=== PATIENT | female | born 1935 | race Caucasian/White ===

== ENCOUNTER 2017-02-01 00:11 | Observation (INO) ==
[2017-02-01] MEDS ORDERED: ONDANSETRON 4 MG/2 ML VIAL IV STA (00:46)
[2017-02-01] MEDS ORDERED: MORPHINE 2 MG/1 ML SYRINGE IV STA ×2 (00:46→02:06)
[2017-02-01] MEDS ORDERED: ONDANSETRON 4 MG/2 ML VIAL ONE (00:57)
[2017-02-01] MEDS ORDERED: MORPHINE 2 MG/1 ML SYRINGE ONE ×2 (00:57→01:56)
[2017-02-01 01:03] LABS: Basophils # 0.1 10*3/uL (0.0-0.2); Basophils % 0.4 % (0.0-0.8); Eosinophils % 0.2 % (0.00-10.9); Hematocrit 38.7 VOL% (35.7-47.0); Hemoglobin 13.5 GM/DL (12.0-16.0); Immature Granulocytes % 0.5 %; Immature Granulocytes Absolute 0.08 #; Lymphocytes # 1.6 10*3/uL (1.4-4.0); Lymphocytes % 10.5 % (21.3-54.2); Mean Corpuscular HGB Conc 34.9 GM/DL (32-36); Mean Corpuscular Hemoglobin 29 PG (27-34); Mean Corpuscular Volume 83.6 FL (87-102); Mean Platelet Volume 9.3 FL (9.6-12.0); Monocytes # 0.7 10*3/uL (0.11-0.8); Monocytes % 4.7 % (1.7-12.7); Neutrophils # 12.8 10*3/uL (1.4-7.4); Neutrophils % 83.7 % (38.7-73.9); Platelet Count 475 T/CUMM (130-400); Red Blood Count 4.63 MC/CUMM (3.8-5.5); Red Cell Distribution Width 14.2 % (9.3-17.3); White Blood Count 15.3 T/CUMM (4-12)
--- NOTE | 2017-02-01 01:13 | Emergency Department Note ---
Sydney Miranda Mantricia, am scribing for, and in the presence of, Riddhi Waterman DO 00:52. IGuevara Debra, DO, personally performed the services described in this documentation, ascribed by Susan Grimes in my presence, and it is both accurate and complete . Arrival - Arrival Chief Complaint: Chest Pain ED Nursing Triage Note: pt brought in via ems with c/o chest pain. pt received 324mg asa and nitro x2 with some relief. pt reports chest pain is now "4" from an "8". pt has hx heart murmur, dm, and breast cancer Mode of Arrival: Stretcher Limitations: No Limitations Source: Patient Time Seen by Provider: 02/01/17 00:23 - History of Present Illness HPI Narrative: Pt is an 81 y/o white female arriving to ED by EMS with c/o chest pain that onset today. Pt reports a PMHx of GERD so when experiencing the pain, she thought she was having a flare up. Because of this, pt took one of her antacids and did not have any relief. Pt had an echo performed a "few weeks" ago with J Carlos Quarles and was told that she has a heart murmur. Pt denies ever having a cath done before. She reports that the pain radiates to her back and left leg. Pt was given 324mg ASA and NTG x2 and had minimal relief. At time of exam, pt's heart rate is 102 with a blood pressure of 174/91. Pt has a PMHx of heart murmur , GERD, DM, and breast cancer. She reports that she receives yearly breast cancer treatments with Dr. Fields. No other complaints were reported to ED. Onset (ago): hour(s) Consistency: constant Severity: moderate Date of Last Menstrual Period: pm Allergies/Adverse Reactions: Allergies Allergy/AdvReac Type Severity Reaction Status Date / Time Penicillins Allergy RASH Verified 02/01/17 00:25 Review of System - Review of System 12 point system: reviewed and no additional remarkable complaints except as stated - Review of System Constitutional: Absent: chills, diaphoresis, fever Respiratory: Absent: cough Cardiovascular: Present: chest pain. Absent: palpitations Gastrointestinal: Absent: abdominal pain, nausea, vomiting, diarrhea Musculoskeletal: Absent: arm pain, back pain, leg pain, neck pain Medical,Surgical,& Family Hx - Medical History Cardio: History of: Cardiovascular Problems (heart murmur) Endocrine: History of: Diabetes Mellitus (NIDDM) - Social History Smoking Status: Never smoker Frequency of Alcohol Use: None Type of Drug Use: None Exam Vital Signs: Vital Signs Temperature 97.7 F 02/01/17 00:11 Pulse Rate 98 H 02/01/17 00:11 Respiratory Rate 20 02/01/17 00:11 Blood Pressure 172/93 02/01/17 00:11 O2 Sat by Pulse Oximetry 98 02/01/17 00:11 - General General appearance: alert, in no apparent distress - Head Head exam: Present: atraumatic, normocephalic - Eye Eye exam: Present: normal appearance, PERRL, EOMI - ENT ENT exam: Present: normal exam - Neck Neck exam: Present: normal inspection - Chest Chest inspection: Present: normal inspection - Respiratory Respiratory exam: Present: normal lung sounds bilaterally - Cardiovascular Cardiovascular exam: Present: normal rhythm, tachycardia, normal heart sounds - Abdominal Exam Abdominal exam: Present: soft. Absent: distention, tenderness, guarding, rebound - Extremities Exam Extremities exam: Present: normal capillary refill, other (non-pitting edema LE bilat). Absent: tenderness - Back Exam Back exam: Present: normal inspection - Neurological Exam Neurological exam: Present: alert, oriented X3, CN II-XII intact - Psychiatric Psychiatric exam: Present: normal affect, normal mood - Skin Skin exam: Present: warm, dry, intact, normal color Course Course Narrative: Spoke with hospitalist regarding patient's condition. His troponin and CK-MB are elevated. She will be admitted secondary to coronary event. Results - Labs CBC & BMP: 02/01/17 00:49 02/01/17 00:49 Lab Results: I have reviewed the patients labs Labs: Laboratory Tests 02/01/17 10 00:49 00:49 WBC 15.3 H MCV 83.6 L Plt Count 475 H MPV 9.3 L Neut % (Auto) 83.7 H Lymph % (Auto) 10.5 L Neut # (Auto) 12.8 H Sodium 132 L Chloride 94 L Anion Gap 19.7 H BUN 14 Creatinine 1.20 H Glucose 211 H Calculated Osmolality 270.5 L Calcium 10.5 H CK-MB (CK-2) 6.1 H Troponin I 1.340 H - EKG EKG results: interpreted by RUTHANND EKG shows: tachycardia, sinus rhythm - Diagnostic Findings Procedure: Chest x-ray: image reviewed by me (no acute process) Disposition Clinical Impression: Chest pain Case discussed with: patient, patient's family Disposition: Still a Patient Condition: Stable Time of Disposition: 04:00
[2017-02-01 01:15] LABS: PT Patient Result 10.4 SECS; Partial Thromboplastin Time 25.2 SECS (0-40)
[2017-02-01 01:24] LABS: Bilirubin,Total 0.5 MG/DL (0.2-1.0); Calcium 10.5 MG/DL (8.5-10.1); Osmolality,Calculated 270.5 MOS/KG (273-304); Potassium 3.7 MMOL/L (3.5-5.1); Total Protein 7.5 G/DL (6.4-8.3)
[2017-02-01 01:40] LABS: Troponin I Only 1.34 NG/ML (0.00-0.045)
[2017-02-01] MEDS ORDERED: NITROGLYCERIN 2% OINT 1 INCH/GM PACK TOP ONE (01:56)
[2017-02-01] MEDS ORDERED: NITROGLYCERIN 2% OINT 1 INCH/GM PACK TOP STA (02:06)
--- NOTE | 2017-02-01 02:54 | Order Completion Report ---
See report scanned to EMR
[2017-02-01] MEDS ORDERED: ENOXAPARIN 80 MG/0.8 ML SYRINGE SUBCUT STA (03:31)
[2017-02-01] MEDS ORDERED: ENOXAPARIN 80 MG/0.8 ML SYRINGE SUBCUT ONE (04:07)
[2017-02-01] MEDS ORDERED: GLUCAGON 1 MG VIAL IM PRN (04:21)
[2017-02-01] MEDS ORDERED: MORPHINE 2 MG/1 ML SYRINGE IV PRN (04:21)
[2017-02-01] MEDS ORDERED: DEXTROSE 50% 25 GM/50 ML SYRINGE IV PRN (04:21)
[2017-02-01] MEDS ORDERED: ONDANSETRON 4 MG/2 ML VIAL IV PRN (04:21)
--- NOTE | 2017-02-01 04:31 | Hospitalist History & Physical ---
Assessment and Plan (1) NSTEMI (non-ST elevated myocardial infarction) Status: Acute Assessment and plan: By definition patient has NSTEMI. We will trend troponin. Admit patient to monitored bed she has received Lovenox. Will continue aspirin daily and her home dose of metoprolol. Consult cardiology. Further heparin doses will defer to cardiology based on their evaluation and workup. Will order prophylactic dose of Lovenox for DVT prophylaxis starting from 02/02/2017. This may need to be stopped if cardiology recommend therapeutic dose of anticoagulation in the morning Current Visit: Yes (2) HTN (hypertension) Status: Acute Assessment and plan: Continue metoprolol 50 mg identify home meds Current Visit: Yes (3) Hypercalcemia Status: Acute Assessment and plan: Noted hypoglycemia will need to identify home medication but will give IV fluids as dehydration is suspected. Current Visit: Yes (4) Diabetes mellitus Status: Chronic Assessment and plan: Patient is on diet control for diabetes. Will check hemoglobin A1c and monitor blood sugar with the sliding scale short-acting insulin Current Visit: Yes (5) Leukocytosis Status: Acute Assessment and plan: No other evidence of infection or fever. Leukocytosis may be due to dehydration patient is being hydrated WBC count to be repeated after hydration. Further workup if continued to rise or febrile Current Visit: Yes (6) Hiatal hernia with GERD Status: Acute Assessment and plan: Antireflux measures and PPI Current Visit: Yes History of Present Illness Chief complaint: Chest pain History of present illness: Ms. Dewitt is a 81 year old female with history of hypertension and diabetes mellitus she is on antihypertensive medication but does not know the name of medication she is on diet control for diabetes mellitus. She has history of heart murmur but recent echo was done and according to her it was reported "ok" She was brought to the EMS with complaints of chest pain started at 10:30 PM initially she thought she has a heartburn due to GERD and took antacid but not relieved. She came to the ER by midnight and was still hurting she was given aspirin on route here and nitroglycerin sublingual. He has she received morphine and nitroglycerin ointment. Her pain has almost resolved now. The pain was reported to be midline and was radiating to back and felt like both side of chest hurting. It was associated that showed short of breath but no nausea vomiting but reported diaphoresis no fever or cough no urinary symptoms. In the ER she had EKG which appeared to show some ST changes in inferior leads "revealed troponin I 0.34 WBC 15.3 hemoglobin 13.5 hematocrit 38.7 platelet 475 sodium 132 potassium 3.7 creatinine 1.2 BUN 14 blood sugar 211 calcium 10.5. She also underwent evaluation with a CT chest which was reported to have large gastric containing hernia. she also received 80 mg of Lovenox in the ER. Allergies Allergy/AdvReac Type Severity Reaction Status Date / Time Penicillins Allergy RASH Verified 02/01/17 00:25 Medical,Surgical,& Family Hx - Medical History Cardio: History of: Cardiovascular Problems (heart murmur) Endocrine: History of: Diabetes Mellitus (NIDDM) - Social History Smoking Status: Never smoker Frequency of Alcohol Use: None Type of Drug Use: None 12 point system: reviewed and no additional remarkable complaints except as stated (Mentioned in HPI) Exam - Constitutional Vitals: Period Temp Pulse Resp BP Sys/Pike Pulse Ox Last 24 Hr 97.7 F-97.7 F 98-98 20-20 172-172/93-93 98 General appearance: no acute distress - Head Head exam: Present: normal inspection, normocephalic, atraumatic - Eye Eye exam: Present: EOMI. Absent: conjunctival injection, nystagmus Pupils: Present: MAYELA, normal accommodation - ENT ENT exam: Present: normal oropharynx, other (Dry oral mucosa) - Respiratory Respiratory exam: Present: clear to auscultation bilaterally. Absent: accessory muscle use, chest wall tenderness, rales, rhonchi - Cardiovascular Cardiovascular exam: Present: regular rate and rhythm. Absent: tachycardia - GI/Abdominal GI/Abdominal exam: Present: normal bowel sounds, soft. Absent: distended, tenderness - Extremities Exam Extremities exam: Present: normal inspection. Absent: edema - Neurological Exam Neurological exam: Present: alert, oriented X3. Absent: motor sensory deficit - Psychiatric Psychiatric exam: Present: normal affect, normal mood - Skin Skin exam: Present: normal color, warm Results - Labs CBC & BMP: 02/01/17 00:49 02/01/17 00:49 Lab Results: I have reviewed the past 24 hour labs
[2017-02-01] MEDS ORDERED: NITROGLYCERIN SL 0.4 MG TABLET SL PRN (04:41)
[2017-02-01] MEDS ORDERED: hydrALAZINE 25 MG TABLET PO PRN (04:47)
[2017-02-01] MEDS: SODIUM CHLORIDE 0.9% 1,000 ML IV SCH ×3 (06:46→17:15)
[2017-02-01 07:08] LABS: CKMB % 13.1 %
[2017-02-01 07:09] LABS: Troponin I Only 5.83 NG/ML (0.00-0.045)
[2017-02-01 07:15] LABS: Magnesium 1.7 MG/DL (1.8-2.4); Risk Ratio 3.12; Thyroid Stimulating Hormone 2.28 uIU/ml (0.358-3.74); VLDL CHOLESTEROL 20.4 MG/DL
[2017-02-01] MEDS: INSULIN LISPRO 100 UNIT/ML SUBCUT SCH ×4 (08:39→22:07)
[2017-02-01] MEDS: METOPROLOL SUCCINATE XL 50 MG TABLET PO SCH (08:40)
[2017-02-01] MEDS: ASPIRIN EC 81 MG TABLET PO SCH (08:40)
[2017-02-01] MEDS: PANTOPRAZOLE 40 MG TABLET PO SCH (08:40)
--- NOTE | 2017-02-01 08:40 | XRay Report ---
XR chest 1V portable Indication: Chest pain Comparison: None available Findings: The heart size appears slightly enlarged. The pulmonary vascularity is slightly increased with bilateral increased interstitial lung density. No other lung infiltrates, effusions, pneumothorax or other abnormality is demonstrated. Impression: Findings suggest mild cardiac decompensation. PROCEDURE INTERPRETED AT [facility] DEPARTMENT OF RADIOLOGY Final Report Signed by: Dr. Edouard Rodgers
[2017-02-01] MEDS ORDERED: MAGNESIUM SULF RIDER 2 GM in PREMIX 1 EACH IV ONE (09:04)
[2017-02-01] MEDS ORDERED: MAGNESIUM SULF RIDER 50 ML IV ONE (09:05)
--- NOTE | 2017-02-01 09:05 | Cardiology Consult Note ---
Assessment and Plan (1) NSTEMI (non-ST elevated myocardial infarction) Status: Acute Assessment and plan: This apparently started yesterday or at least last night. This is been progressing in terms of symptoms. His troponins are increasing. The patient's current catheterization discussed above which will carry out this morning. Current Visit: Yes (2) Chest pain Status: Acute Assessment and plan: This is secondary to her non-ST segment elevation microinfarction/cardiac ischemia. Current Visit: Yes (3) Dyslipidemia Status: Chronic Assessment and plan: This is chronic and somewhat difficult to treat secondary to statin intolerance. Current Visit: Yes (4) Statin intolerance Status: Chronic Current Visit: Yes (5) Breast cancer, right Status: Chronic Assessment and plan: This is followed by her oncologist. Current Visit: Yes (6) HTN (hypertension) Status: Chronic Assessment and plan: Chronic and treated. Her blood pressures are borderline to mildly elevated still. We will adjust her medications during his hospitalization as needed. Current Visit: Yes (7) Hypercalcemia Status: Chronic Assessment and plan: We will leave this evaluation up to her primary care physician in the hospital service. Current Visit: Yes (8) Diabetes mellitus Status: Chronic Assessment and plan: This will be followed by the hospitalist service. Current Visit: Yes (9) Leukocytosis Status: Acute Assessment and plan: Etiology is unclear. We will leave this evaluation up to the hospital service. Current Visit: Yes History of Present Illness - Data of Consult Patient: known to practice within the last 3 years Consult date: 02/01/17 Requesting Physician: Jesu Everett - Consult Narrative Reason for consult: Chest pain, non-ST segment elevation microinfarction History of present illness: Ms. Dewitt is a 81 year old female who is admitted with chest pain. According to her and her over the past month she has had some chest discomfort back pain that she felt was indigestion since we seem to resolve with antacids. The patient was admitted with severe back discomfort and chest discomfort. A more intense in the back. It seemed to radiate to her shoulder blades but no radiation into the arms. No shortness of breath nausea or diaphoresis. It persisted and she presented to the emergency room for evaluation. She was brought in by EMS. ER evaluation included chest x-ray that per radiology revealed mild cardiac decompensation. ECG reveals sinus rhythm with lateral T-wave abnormalities that was minimal and non-diagnostic. ECG this morning with sinus rhythm with ST -T abnormalities nonspecific but slightly progressive from admission ECG. Her troponins have increased from 1.34-5.83 with CPKs increasing from 68 217 and a positive and significant elevated MB fraction. Patient is continued to have some recurrent chest pain of anginal quality. Her lipids are elevated and she is on pravastatin but has a history of statin intolerance. Other medical issues according to her and her chart include that of dyslipidemia as well as hypertension diabetes. She has a history of statin intolerances are noted and Dr. Quarles's note indicates that patient's had atherosclerosis of the aorta. Because this patient's recurrent pain elevated troponins I think she should have cardiac catheterization possible percutaneous intervention. I have reviewed this procedure with the patient and her reviewing the case procedure had be carried out the risk. I discussed cardiac catheterization and percutaneous coronary intervention with the patient and available family. I reviewed with them the indications for the procedure and the basis of how the procedure would be carried out. I also reviewed with them the risk of the procedure which include but not necessarily limited to access site bleeding, bruising, pain, swelling or vascular injury that may require emergency vascular surgery, blood transfusion, or thrombin injection. Also discussed the possibility of stroke, myocardial infarction, arrhythmia which may require electrocardioversion, and the possibility of dye reaction that would require medical therapy. Also discussed the possibility of coronary artery injury, ruptured, closure or perforation that may require emergency bypass surgery. We also discussed the possibility of from a major complication. They voice understanding and agree to proceed. We will plan on doing this morning urgently. CC: Jean Tavares MD - Home Medications and Allergies Home Medications: Home Medications Medication Instructions Recorded Confirmed Type Aspirin [Ecotrin] 81 mg PO BEDTIME 02/01/17 02/01/17 History Metoprolol Succinate Xl [Toprol Xl] 50 mg PO DAILY 02/01/17 02/01/17 History Montelukast Tab [Singulair Tab] 10 mg PO BEDTIME 02/01/17 02/01/17 History Multivitamin (Centrum) [Centrum 1 tablet PO DAILY 02/01/17 02/01/17 History Tab] Pantoprazole Tab [Protonix Tab] 40 mg PO DAILY 02/01/17 02/01/17 History Allergies/Adverse Reactions: Allergies Allergy/AdvReac Type Severity Reaction Status Date / Time Penicillins Allergy RASH Verified 02/01/17 00:25 Review of systems: Constitutional: Denies anorexia, chills, fatigue, fever, frequent falls, night sweats, weight gain, weight loss Eyes: Denies visual changes or loss of vision Ears: Denies decreased hearing, vertigo Nose, mouth and throat: Denies dysphagia, epistaxis, headaches, neck pain, tongue swelling, Neck: Denies thyromegaly or masses. No stiffness. Cardiovascular: as per HPI Respiratory: Denies cough, dyspnea, hemoptysis, dyspnea on exertion, wheezing, snoring Gastrointestinal: Denies abdominal pain, constipation, dyspepsia, dysphagia, hematemesis, hematochezia, melena, nausea, vomiting Genitourinary: Denies dysuria, hematuria, nocturia Musculoskeletal: Denies arthralgias, joint swelling, muscle weakness, myalgias Neurological: denies abnormal gait, abnormal speech, confusion, convulsions, frequent falls, headaches, memory loss, syncope Psychiatric: Denies anxiety, confusion, depression Endocrine: Denies cold intolerance, fatigue, heat intolerance Hematologic/Lymphatic: Denies easy bleeding, easy bruising Dermatologic: Denies Rash, itching, shingles Medical,Surgical,& Family Hx - Medical History Cardio: History of: Cardiovascular Problems (heart murmur) Endocrine: History of: Diabetes Mellitus (NIDDM), Endocrine Problems (allergies - shots q 2 weeks) Reproductive: History of: Breast Cancer (1999- surgery and radiation) - Surgical History Cardiac Surgeries: Patient Denies: Cardiac Catheterization Neurologic Surgeries: Patient denies: Neurologic Surgery HEENT Surgeries: Surgical HX of: Eye Surgery (cataract surgery) Reproductive Surgeries: Surgical HX of;: Breast Surgery - Family History Family History: Denies;: Family Anesthesia Reaction, Family Cancer, Family Diabetes, Family Heart Disease, Family Hematology, Family Hypertension, Family Psychiatric Problems, Family Stroke, Additional Family History - Social History Smoking Status: Never smoker Frequency of Alcohol Use: None Type of Drug Use: None Marital Status: Lives With:: Spouse Functional capacity: independent ambulation Physical Examination Vital Signs Temp Pulse Resp BP Pulse Ox 97.7 F 98 H 20 172/93 98 02/01/17 00:11 02/01/17 00:11 02/01/17 00:11 02/01/17 00:11 02/01/17 00:11 Exam: General appearance: normal weight, no acute distress Head exam: normal inspection, atraumatic Eye exam: Pupils are equal and reactive. EOMI. There is no trauma. Ear exam: Anatomically normal. Normal auditory acuity to conversation. Oral exam: No significant oral lesions. Neck exam: normal inspection no JVD. No carotid bruit. Trachea is in midline. Respiratory exam: clear to auscultation bilaterally posteriorly and anteriorly with good air movement. No rales, rhonchi or wheezes. Cardiovascular exam: regular rate and rhythm, no murmur or gallop or rub. No precordial lift. No bruits over the major arteries. Chest wall/torso: Anatomically normal. No tenderness, deformity Peripheral Pulses: 2+ throughout. GI/Abdominal exam: normal bowel sounds, soft and nontender, no abdominal bruits or pulsatile masses. Musculoskeletal/Extremities exam: normal inspection without edema or cyanosis. No deformities or trauma. Neurological exam: alert, oriented X3. There is no gross neurologic deficits. Psychiatric exam: normal affect, normal mood. Cognitive function is grossly intact. Skin exam: normal color, warm. No rashes or other skin lesions. Result/EKG - Labs CBC & BMP: 02/01/17 00:49 02/01/17 00:49 Lab Results: I have reviewed the past 24 hour labs (Troponins and CPKs are increasing. WBC is elevated some.) Labs: Laboratory Results - last 24 hr 02/01/17 02/01/17 02/01/17 00:49 00:49 00:49 WBC 15.3 H RBC 4.63 Hgb 13.5 Hct 38.7 MCV 83.6 L MCH 29 MCHC 34.9 RDW 14.2 Plt Count 475 H MPV 9.3 L Neut % (Auto) 83.7 H Lymph % (Auto) 10.5 L [place] % (Auto) 4.7 Eos % (Auto) 0.2 Baso % (Auto) 0.4 Neut # (Auto) 12.8 H Lymph # (Auto) 1.6 [place] # (Auto) 0.7 Eos # (Auto) 0.0 Baso # (Auto) 0.1 Immature Gran % 0.5 Nucleated RBC % 0.0 Immature Gran # 0.08 Nucleated RBCs # 0.00 Immature Plt Fraction 0.0 INR 1.0 PT Patient/Control Mix 10.4 D-Dimer, Quantitative <= 0.5 Circ Anticoag PTT 25.2 Sodium 132 L Potassium 3.7 Chloride 94 L Carbon Dioxide 22 Anion Gap 19.7 H BUN 14 Creatinine 1.20 H GFR Calculation 45 BUN/Creatinine Ratio 11.00 Glucose 211 H POC Glucose Hemoglobin A1c Calculated Osmolality 270.5 L Calcium 10.5 H Magnesium Total Bilirubin 0.50 AST 18 ALT 18 Alkaline Phosphatase 113 Total Creatine Kinase 68 CK-MB (CK-2) 6.1 H CK and CKMB Interp 9.0 Troponin I 1.340 H B-Natriuretic Peptide Total Protein 7.5 Albumin 4.0 Globulin 3.5 Albumin/Globulin Ratio 1.1 Triglycerides Cholesterol LDL Cholesterol VLDL Cholesterol HDL Cholesterol Heart Disease Risk Ratio Free T4 TSH 3rd Generation 02/01/17 02/01/17 02/01/17 06:19 06:19 06:19 WBC RBC Hgb Hct MCV MCH MCHC RDW Plt Count MPV Neut % (Auto) Lymph % (Auto) [place] % (Auto) Eos % (Auto) Baso % (Auto) Neut # (Auto) Lymph # (Auto) [place] # (Auto) Eos # (Auto) Baso # (Auto) Immature Gran % Nucleated RBC % Immature Gran # Nucleated RBCs # Immature Plt Fraction INR PT Patient/Control Mix D-Dimer, Quantitative Circ Anticoag PTT Sodium Potassium Chloride Carbon Dioxide Anion Gap BUN Creatinine GFR Calculation BUN/Creatinine Ratio Glucose POC Glucose Hemoglobin A1c 6.8 H Calculated Osmolality Calcium Magnesium 1.7 L Total Bilirubin AST ALT Alkaline Phosphatase Total Creatine Kinase CK-MB (CK-2) CK and CKMB Interp Troponin I B-Natriuretic Peptide Total Protein Albumin Globulin Albumin/Globulin Ratio Triglycerides 102 Cholesterol 206 H LDL Cholesterol 126.0 VLDL Cholesterol 20.4 HDL Cholesterol 66 H Heart Disease Risk Ratio 3.12 Free T4 1.30 TSH 3rd Generation 2.280 02/01/17 02/01/17 02/01/17 06:19 06:19 07:34 WBC RBC Hgb Hct MCV MCH MCHC RDW Plt Count MPV Neut % (Auto) Lymph % (Auto) [place] % (Auto) Eos % (Auto) Baso % (Auto) Neut # (Auto) Lymph # (Auto) [place] # (Auto) Eos # (Auto) Baso # (Auto) Immature Gran % Nucleated RBC % Immature Gran # Nucleated RBCs # Immature Plt Fraction INR PT Patient/Control Mix D-Dimer, Quantitative Circ Anticoag PTT Sodium Potassium Chloride Carbon Dioxide Anion Gap BUN Creatinine GFR Calculation BUN/Creatinine Ratio Glucose POC Glucose 178 H Hemoglobin A1c Calculated Osmolality Calcium Magnesium Total Bilirubin AST ALT Alkaline Phosphatase Total Creatine Kinase 217 H D CK-MB (CK-2) 28.5 H D CK and CKMB Interp 13.1 Troponin I 5.830 H D B-Natriuretic Peptide 661 H Total Protein Albumin Globulin Albumin/Globulin Ratio Triglycerides Cholesterol LDL Cholesterol VLDL Cholesterol HDL Cholesterol Heart Disease Risk Ratio Free T4 TSH 3rd Generation - Impressions Impressions: ECG was sinus rhythm with ST-T abnormalities that are nondiagnostic but have shown a slight increase in abnormality since admission.
[2017-02-01 09:08] LABS: CKMB % 13.1 %
[2017-02-01 09:13] LABS: Troponin I Only 5.94 NG/ML (0.00-0.045)
[2017-02-01] MEDS ORDERED: DIAZEPAM 5 MG TABLET PO ONE (09:16)
[2017-02-01] MEDS ORDERED: POTASSIUM CHLORIDE RIDER 10 MEQ in PREMIX 1 EACH IV PRN (09:16)
[2017-02-01] MEDS ORDERED: diphenhydrAMINE CAP 25 MG CAPSULE PO ONE (09:16)
[2017-02-01] MEDS ORDERED: MAGNESIUM SULF RIDER 2 GM in PREMIX 1 EACH IV PRN (09:16)
--- NOTE | 2017-02-01 09:17 | History and Physical Update ---
Sedation H&P Update - History and Physical H&P was reviewed, the patient examined and there: are no changes in the patients condition since last H&P was completed. - Dictation Physical: refer to H&P completed by admitting physician - Physical Exam Mental Status: alert and oriented Heart: regular rate and rhythm Lung: clear to auscultation Abdomen: within normal limits Vitals: within normal limits History and Physical Changes: None - Sedation Plan for Sedation: moderate Patient Consent: Procedure disscussed with patient and patinet has consented., Risks and benefits were discussed with patient,including infection,, bleeding, injury to surrounding structures, seizure, temporary nerve, Patient understands and accepts potential risks/benefits and agrees to, proceed. ASA Class: III Airway Assessment: Class III: Soft palate, base of uvula visible
--- NOTE | 2017-02-01 09:25 | CT Report ---
CT chest w con Indication: Chest pain Comparison: None available Technique: Axial CT imaging of the chest was done at 3 mm intervals with intravenous contrast. Contrast dose was Omnipaque 350. Findings: There are small amounts of airspace density in the dependent lungs and adjacent to the final hernia. Remaining lungs show no evidence of infiltrates or airspace disease. No nodule or mass is identified. No effusion or pneumothorax is seen. There is large hiatal hernia present. Otherwise the heart, mediastinum and great vessels appear within normal limits. No other abnormality is identified. Impression: Large hiatal hernia. Small amounts of airspace density in both lower lungs the dependent lungs and adjacent to the hernia sac, likely atelectasis. This CT exam was performed using one or more the following dose reduction techniques: Automated exposure control, adjustment of the MA and/or KV according to patient size, or use of iterative reconstruction technique. PROCEDURE INTERPRETED AT [facility] DEPARTMENT OF RADIOLOGY Final Report Signed by: Dr. Edouard Rodgers
[2017-02-01] MEDS ORDERED: LIDOCAINE 1% 20 ML VIAL ONE (09:55)
[2017-02-01] MEDS ORDERED: fentaNYL 100 MCG/2 ML VIAL ONE (09:56)
[2017-02-01] MEDS ORDERED: MIDAZOLAM 2 MG/2 ML VIAL ONE (09:56)
[2017-02-01] MEDS ORDERED: TIROFIBAN 5,000 MCG/100 ML PREMIX IV ONE (10:20)
[2017-02-01] MEDS ORDERED: TIROFIBAN 5,000 MCG/100 ML PREMIX IV SCH (10:28)
[2017-02-01] MEDS ORDERED: HYDROmorphone 2 MG/1 ML VIAL ONE (10:34)
[2017-02-01] MEDS ORDERED: TICAGRELOR 90 MG TABLET ONE (10:53)
--- NOTE | 2017-02-01 11:07 | Operative Note ---
Date of procedure: 02/01/17 Procedure Preformed: Left heart catheterization with stenting of the proximal and mid LAD. Surgeon / Physician: Aron Boyd Brake Drum Molder: Bethany Norton Post-op diagnosis: same Findings: High-grade proximal mid LAD stenosis with successful PCI. Specimens: none sent Estimated blood loss: minimal Condition: stable Anesthesia: local, conscious sedation Disposition: floor
[2017-02-01] MEDS ORDERED: FUROSEMIDE 20 MG/2 ML VIAL IV ONE (11:26)
[2017-02-01] MEDS: ACETAMINOPHEN 325 MG TABLET PO PRN ×3 (12:59→21:21)
--- NOTE | 2017-02-01 13:50 | XRay Report ---
XR chest 1V portable Indication: Shortness of breath Comparison: One February 2017 at 1249 Findings: The heart and mediastinum are stable in size and configuration. The pulmonary vascularity is slightly increased with bilateral increased interstitial lung density. No other lung infiltrates, effusions, pneumothorax or other abnormality is demonstrated. Impression: Findings suggest mild cardiac decompensation. PROCEDURE INTERPRETED AT [facility] (FORMERLY [facility]) DEPARTMENT OF RADIOLOGY Final Report Signed by: Dr. Edouard Rodgers
--- NOTE | 2017-02-01 15:57 | Event Note ---
81-year-old white female with history of hypertension and diabetes was admitted with chest pain. She ruled in for non-ST elevation [place], and cardiology performed left heart catheterization with successful PCI and stenting to proximal and mid LAD. She states that her chest pain has resolved. She is on aspirin and Brilinta as well as Aggrastat infusion. Her hemoglobin A1c was 6.8 , total cholesterol 206 with LDL 126. Continue to monitor on telemetry.
[2017-02-01 17:29] LABS: CKMB % 13.5 %
[2017-02-01 17:30] LABS: Apearance,Urine CLEAR (Clear); Bilirubin,Urine Negative (Negative); Blood, Urine Negative (Negative); Glucose,Urine (UA) Negative (Negative); Ketones,Urine Negative (Negative); Mucus,Urine Occasional /LPF (Occasional); Nitrite,Urine Negative (Negative); Protein,Urine Negative; RBC,Urine 4 /HPF (0-4); Squamous Epithelial Cell,Urine Occasional /HPF (0-10); Urine Color Yellow (Yellow); Urine Specific Gravity > 1.060 (1.001-1.035); Urine Urobilinogen < 2.0 EU/DL (0.2-1.0); WBC,Urine 1 /HPF (0-6)
[2017-02-01 17:32] LABS: Troponin I Only 5.93 NG/ML (0.00-0.045)
[2017-02-01] MEDS: TICAGRELOR 90 MG TABLET PO SCH (21:21)
[2017-02-02] MEDS: SODIUM CHLORIDE 0.9% 1,000 ML IV SCH ×2 (03:38→12:32)
--- NOTE | 2017-02-02 05:20 | Order Completion Report ---
See report scanned to EMR
--- NOTE | 2017-02-02 05:21 | Order Completion Report ---
See report scanned to EMR
[2017-02-02 05:54] LABS: Basophils % 0.3 % (0.0-0.8); Eosinophils # 0.1 10*3/uL (0.0-0.87); Eosinophils % 0.4 % (0.00-10.9); Hematocrit 28.1 VOL% (35.7-47.0); Immature Granulocytes % 0.4 %; Immature Granulocytes Absolute 0.05 #; Lymphocytes # 1.8 10*3/uL (1.4-4.0); Lymphocytes % 13.6 % (21.3-54.2); Mean Corpuscular HGB Conc 34.2 GM/DL (32-36); Mean Corpuscular Hemoglobin 29 PG (27-34); Mean Corpuscular Volume 85.7 FL (87-102); Mean Platelet Volume 9.6 FL (9.6-12.0); Monocytes # 1.1 10*3/uL (0.11-0.8); Monocytes % 8.1 % (1.7-12.7); Neutrophils # 10.4 10*3/uL (1.4-7.4); Neutrophils % 77.2 % (38.7-73.9); Red Cell Distribution Width 14.6 % (9.3-17.3); White Blood Count 13.4 T/CUMM (4-12)
[2017-02-02 06:15] LABS: Hemoglobin 9.6 GM/DL (12.0-16.0); Platelet Count 300 T/CUMM (130-400); Red Blood Count 3.28 MC/CUMM (3.8-5.5)
[2017-02-02 06:22] LABS: Albumin 2.1 G/DL (3.4-5.0); Calcium 6.4 MG/DL (8.5-10.1); Osmolality,Calculated 270.8 MOS/KG (273-304); Potassium 2.9 MMOL/L (3.5-5.1)
[2017-02-02 06:30] LABS: CKMB % 10.7 %; Calcium 7.1 MG/DL (8.5-10.1); Osmolality,Calculated 266.2 MOS/KG (273-304); Potassium 3.2 MMOL/L (3.5-5.1)
[2017-02-02 06:33] LABS: Troponin I Only 4.14 NG/ML (0.00-0.045)
--- NOTE | 2017-02-02 06:55 | Order Completion Report ---
See report scanned to EMR
[2017-02-02] MEDS: ASPIRIN EC 81 MG TABLET PO SCH (08:07)
[2017-02-02] MEDS: INSULIN LISPRO 100 UNIT/ML SUBCUT SCH ×2 (08:07→11:32)
[2017-02-02] MEDS: TICAGRELOR 90 MG TABLET PO SCH (08:08)
[2017-02-02] MEDS: PANTOPRAZOLE 40 MG TABLET PO SCH (08:11)
[2017-02-02] MEDS: METOPROLOL SUCCINATE XL 50 MG TABLET PO SCH (08:12)
[2017-02-02] MEDS ORDERED: ENOXAPARIN 40 MG/0.4 ML SYRINGE SUBCUT SCH (09:00)
[2017-02-02] MEDS ORDERED: LOSARTAN 25 MG TABLET PO SCH (09:00)
--- NOTE | 2017-02-02 10:47 | Cardiology Progress Note ---
Assessment and Plan (1) NSTEMI (non-ST elevated myocardial infarction) Status: Acute Assessment and plan: SEE PLAN OF CARE LISTED BELOW. Current Visit: Yes (2) Anemia Status: Acute Assessment and plan: SEE PLAN OF CARE LISTED BELOW. Current Visit: Yes (3) Hypokalemia Status: Acute Assessment and plan: SEE PLAN OF CARE LISTED BELOW. Current Visit: Yes (4) Leukocytosis Status: Acute Assessment and plan: SEE PLAN OF CARE LISTED BELOW. Current Visit: Yes (5) Breast cancer, right Status: Chronic Assessment and plan: SEE PLAN OF CARE LISTED BELOW. Current Visit: No (6) Diabetes mellitus Status: Chronic Assessment and plan: SEE PLAN OF CARE LISTED BELOW. Current Visit: Yes (7) Dyslipidemia Status: Chronic Assessment and plan: SEE PLAN OF CARE LISTED BELOW. Current Visit: Yes (8) HTN (hypertension) Status: Chronic Assessment and plan: SEE PLAN OF CARE LISTED BELOW. Current Visit: Yes (9) Statin intolerance Status: Chronic Assessment and plan: SEE PLAN OF CARE LISTED BELOW. Current Visit: Yes Cardiology - PN: Subj Interval history: NUT FEEDER: Dr. Quarles SUMMARY Ms. Dewitt is a 81 year old female with a past medical history of dyslipidemia ( history of statin intolerance), hypertension, breast cancer and diabetes who was admitted with non-ST elevation [place]. Subsequently, patient underwent heart catheterization per February 01, 2017. She was noted to have high-grade proximal mid LAD stenosis with successful PCI. FEBRUARY 02, 2017 Patient was seen and examined on the telemetry unit. She has done well post heart catheterization. Right groin is soft without bleeding, hematoma or bruit. Distal pulses 2+. Patient has ambulated around the room without difficulty. Right groin has remained stable post ambulation. She has been without recurrent chest pain, heaviness or tightness. Hemodynamically stable. I have discussed the importance of absolute compliance with dual antiplatelet therapy. Her and her both verbalized understanding. She will be discharged home on both Brilinta and aspirin. I have reviewed her labs. Troponin trending down. Her H&H has significantly dropped from previous withdrawal. It is possible that these labs could be dilated as she was receiving IV fluids at the time of her lab draw. I have discussed with the nurse and we will recheck both CBC and BMP. I have also discussed care with MIKE Kirby for hospital medicine. If her H&H and electrolytes are better with repeat lab draw patient will be eligible for discharge from a cardiac standpoint. Patient underwent echocardiogram this morning. These results are pending. The study will be reviewed per Dr. Bailey. REVIEW OF SYSTEMS: Cardiovascular: Denies chest pain, heaviness or tightness. Denies heart racing/ palpitations. GI: Denies nausea, vomiting or diarrhea. Denies constipation. Respiratory: Denies shortness of breath, orthopnea and dyspnea on exertion. IMPRESSION AND PLAN: 1. NON-ST ELEVATION [place] - Now status post PCI to mid LAD. Troponin is trending down. Patient without recurrent chest pain, heaviness or tightness. Continue dual antiplatelet therapy, losartan, beta-blockade, nitrates and lipid- lowering agent. Patient has history of statin intolerance for this reason she will not be discharged home on statin. She will be discharged home on Zetia. Repeat lipid panel in 4-6 weeks. Patient underwent echocardiogram this morning. These results are pending. The study will be reviewed per Dr. Bailey. Patient may be eligible for discharge home from a cardiac standpoint if repeat H &H and BMP are stable. 2. DYSLIPIDEMIA, STATIN INTOLERANT - Zetia initiated today. LDL 126. Repeat lipid panel in 4-6 weeks. 3. HYPERTENSION - Well controlled with current medication regimen. Continue ARB and beta blockade. 4. HISTORY OF BREAST CANCER - Stable, now in remission. 5. DIABETES - Management per attending. 6. LEUKOCYTOSIS WITH LEFT SHIFT - Afebrile. Defer workup/management to attending. This was present prior to heart catheterization. 7. ANEMIA - CBC this morning revealed H&H of 9.6 and 28.1. This is significantly lower than H&H yesterday. It is possible that these labs could be dilated as she was receiving IV fluids at the time of her lab draw. I have discussed with the nurse and we will recheck CBC. 8. HYPOKALEMIA - Potassium 3.2 this morning. It is possible that these labs could be dilated as she was receiving IV fluids at the time of her lab draw. I have discussed with the nurse and we will recheck BMP. DISCHARGE MEDICATIONS SHOULD INCLUDE: Brilinta 90 mg p.o. twice daily -patient will need 30 day free car Aspirin 81 mg daily Losartan 12.5 mg daily Metoprolol 50 mg daily Nitroglycerin sublingual tablet 0.4 mg as needed chest pain Zetia 10 mg daily Exam (Progress Note) - Constitutional Vitals: Period Temp Pulse Resp BP Sys/Pike Pulse Ox Last 24 Hr 96.8 F-98.9 F 78-97 18-20 98-135/52-78 89-100 Exam: General: Appears well with no apparent distress. Pleasant and cooperative. Appears comfortable. HEENT: PERRL, normocephalic, atraumatic. Mucous membranes moist. No jaundice noted. Conjunctiva moist and clear, sclerae anicteric Neck: No JVD/HJR, no thyromegaly or lymphadenopathy noted. No carotid bruit appreciated Cardiac: Regular rate and rhythm. No murmur rub or gallop. Lungs: Clear to auscultation without accessory muscle use to assist the respiratory pattern. Not requiring oxygen. Abdomen: Soft, bowel sounds normoactive. Nontender and nondistended. No abdominal bruit or thrill noted. No masses noted. Extremities: No clubbing, cyanosis noted. No edema noted. Upper extremity pulses 2+. Lower extremity pulses 2+. Capillary refill less than 3 seconds. Right groin soft without bleeding, hematoma or bruit. Distal pulses 2+. Skin: No unusual lesions or rashes. No skin breakdown appreciated. Neuro: Awake, alert and oriented 3. Moves all extremities well without hemiparesis or paralysis. No essential tremor is appreciated. Result/EKG - Labs CBC & BMP: 02/02/17 04:46 02/02/17 04:46 Lab Results: I have reviewed the past 24 hour labs Labs: Laboratory Results - last 24 hr 02/01/17 02/01/17 02/01/17 11:33 16:06 16:44 WBC RBC Hgb Hct MCV MCH MCHC RDW Plt Count MPV Neut % (Auto) Lymph % (Auto) [place] % (Auto) Eos % (Auto) Baso % (Auto) Neut # (Auto) Lymph # (Auto) [place] # (Auto) Eos # (Auto) Baso # (Auto) Immature Gran % Nucleated RBC % Immature Gran # Nucleated RBCs # Immature Plt Fraction Sodium Potassium Chloride Carbon Dioxide Anion Gap BUN Creatinine GFR Calculation BUN/Creatinine Ratio Glucose POC Glucose 181 H 143 H Calculated Osmolality Calcium Total Bilirubin AST ALT Alkaline Phosphatase Total Creatine Kinase 147 D CK-MB (CK-2) 19.9 H D CK and CKMB Interp 13.5 Troponin I 5.930 H Total Protein Albumin Globulin Albumin/Globulin Ratio Urine Color Urine Appearance Urine pH Ur Specific [place] Urine Protein Urine Glucose (UA) Urine Ketones Urine Blood Urine Nitrate Urine Bilirubin Urine Urobilinogen Urine Leukocytes Urine RBC Urine WBC Ur Squamous Epith Cells Urine Mucus Ur Culture Indicated? 02/01/17 02/01/17 02/02/17 17:17 20:00 04:46 WBC 13.4 H RBC 3.28 L D Hgb 9.6 L D Hct 28.1 L MCV 85.7 L MCH 29 MCHC 34.2 RDW 14.6 Plt Count 300 D MPV 9.6 Neut % (Auto) 77.2 H Lymph % (Auto) 13.6 L [place] % (Auto) 8.1 Eos % (Auto) 0.4 Baso % (Auto) 0.3 Neut # (Auto) 10.4 H Lymph # (Auto) 1.8 [place] # (Auto) 1.1 H Eos # (Auto) 0.1 Baso # (Auto) 0.0 Immature Gran % 0.4 Nucleated RBC % 0.0 Immature Gran # 0.05 Nucleated RBCs # 0.00 Immature Plt Fraction 0.0 Sodium Potassium Chloride Carbon Dioxide Anion Gap BUN Creatinine GFR Calculation BUN/Creatinine Ratio Glucose POC Glucose 157 H Calculated Osmolality Calcium Total Bilirubin AST ALT Alkaline Phosphatase Total Creatine Kinase CK-MB (CK-2) CK and CKMB Interp Troponin I Total Protein Albumin Globulin Albumin/Globulin Ratio Urine Color Yellow Urine Appearance Clear Urine pH 5.0 Ur Specific [place] > 1.060 H Urine Protein Negative Urine Glucose (UA) Negative Urine Ketones Negative Urine Blood Negative Urine Nitrate Negative Urine Bilirubin Negative Urine Urobilinogen < 2.0 H Urine Leukocytes Negative Urine RBC 4 Urine WBC 1 Ur Squamous Epith Cells Occasional Urine Mucus Occasional Ur Culture Indicated? Not indicated 02/02/17 02/02/17 02/02/17 04:46 04:46 07:38 WBC RBC Hgb Hct MCV MCH MCHC RDW Plt Count MPV Neut % (Auto) Lymph % (Auto) [place] % (Auto) Eos % (Auto) Baso % (Auto) Neut # (Auto) Lymph # (Auto) [place] # (Auto) Eos # (Auto) Baso # (Auto) Immature Gran % Nucleated RBC % Immature Gran # Nucleated RBCs # Immature Plt Fraction Sodium 137 134 L Potassium 2.9 L 3.2 L Chloride 107 102 Carbon Dioxide 19 L 20 L Anion Gap 13.9 15.2 H BUN 9 9 Creatinine 0.70 0.90 GFR Calculation 86 64 BUN/Creatinine Ratio 12.00 10.00 Glucose 87 94 POC Glucose 88 Calculated Osmolality 270.8 L 266.2 L Calcium 6.4 L D 7.1 L Total Bilirubin 1.00 AST 29 ALT 11 L Alkaline Phosphatase 64 Total Creatine Kinase 133 CK-MB (CK-2) 14.2 H D CK and CKMB Interp 10.7 Troponin I 4.140 H D Total Protein 4.0 L Albumin 2.1 L Globulin 1.9 L Albumin/Globulin Ratio 1.1 Urine Color Urine Appearance Urine pH Ur Specific [place] Urine Protein Urine Glucose (UA) Urine Ketones Urine Blood Urine Nitrate Urine Bilirubin Urine Urobilinogen Urine Leukocytes Urine RBC Urine WBC Ur Squamous Epith Cells Urine Mucus Ur Culture Indicated? Quality Measures - VTE Contraindication to Pharmacological VTE Prophylaxis: High Risk of Bleeding Specialty Discharge - Follow Up or Referrals Follow up with: Saleem Quarles MD [Physician] - 2 Weeks (EKG, BMP and CBC.)
[2017-02-02 11:36] LABS: Basophils # 0.1 10*3/uL (0.0-0.2); Basophils % 0.3 % (0.0-0.8); Eosinophils % 0.2 % (0.00-10.9); Hematocrit 34.2 VOL% (35.7-47.0); Immature Granulocytes % 0.5 %; Immature Granulocytes Absolute 0.09 #; Lymphocytes # 1.9 10*3/uL (1.4-4.0); Lymphocytes % 10.5 % (21.3-54.2); Mean Corpuscular HGB Conc 34.5 GM/DL (32-36); Mean Corpuscular Hemoglobin 29 PG (27-34); Mean Corpuscular Volume 84.4 FL (87-102); Mean Platelet Volume 9.6 FL (9.6-12.0); Monocytes # 1.4 10*3/uL (0.11-0.8); Monocytes % 7.8 % (1.7-12.7); Neutrophils # 14.7 10*3/uL (1.4-7.4); Neutrophils % 80.7 % (38.7-73.9); Red Cell Distribution Width 14.5 % (9.3-17.3)
[2017-02-02 11:40] LABS: Red Blood Count 4.05 MC/CUMM (3.8-5.5); White Blood Count 18.2 T/CUMM (4-12)
[2017-02-02 11:41] LABS: Hemoglobin 11.8 GM/DL (12.0-16.0); Platelet Count 362 T/CUMM (130-400)
[2017-02-02 11:54] VITALS: BP 131/74
[2017-02-02 13:39] LABS: Calcium 8.6 MG/DL (8.5-10.1); Magnesium 1.9 MG/DL (1.8-2.4); Osmolality,Calculated 256.1 MOS/KG (273-304); Potassium 3.9 MMOL/L (3.5-5.1)
--- NOTE | 2017-02-02 13:57 | Discharge Summary ---
Hospital Course - Hospital Course Hospital Course: 81-year-old white female with history of diabetes and hypertension admitted by the hospitalist service on 02/01/2017 with NSTEMI. Cardiology was consulted and patient was taken to the [facility] on 02/01/2017 where performed a left heart catheterization with stenting of the proximal and mid LAD. Patient did develop a small hematoma but this has resolved. Her H&H dropped somewhat but has recovered at 11.8/34.2 today. She does have an elevated white count of 18 with no signs of infection. Will go ahead and discharge patient home on current medications per cardiology with a prescription for Levaquin for 5 days to cover any postop infection. Complete discharge instructions were given to the patient. She will need to follow-up with Dr. Quarles in his office in 1- 2 weeks. Care coordination, chart review, and completed discharge paperwork took approximately 42 minutes. - Time spent with patient Time with patient DS: Greater than 30 minutes Diagnosis - Discharge Diagnosis (1) Chest pain Status: Resolved (2) NSTEMI (non-ST elevated myocardial infarction) Status: Acute (3) HTN (hypertension) Status: Chronic (4) Diabetes mellitus Status: Chronic Specialty Discharge - Follow Up or Referrals Follow up with: Saleem Quarles MD [Physician] - 02/19/17 3:30 pm (EKG, BMP and CBC. Arrive at 3:00 pm for lab work ) Discharge Plan - Discharge Data Disposition: Disch To Home/Self Care Condition at Discharge: Stable Discharge Diet: diabetic diet, heart healthy Activity: resume usual activities as tolerated Hygiene: may shower Contact your physician if you experience:: fever over 101, Redness or swelling, Shortness of breath - Discharge Medications New hydrALAZINE TAB [Apresoline Tab] 25 mg PO TID PRN #90 tablet PRN Reason: Blood Pressure-Increased Losartan [Cozaar] 12.5 mg PO DAILY #30 tablet Ticagrelor [Brilinta] 90 mg PO BID #60 tablet Ezetimibe [Zetia] 10 mg PO BEDTIME #30 tablet Levofloxacin Tab [Levaquin Tab] 500 mg PO DAILY #7 tablet Continue Multivitamin (Centrum) [Centrum Tab] 1 tablet PO DAILY Montelukast Tab [Singulair Tab] 10 mg PO BEDTIME Metoprolol Succinate Xl [Toprol Xl] 50 mg PO DAILY Aspirin [Ecotrin] 81 mg PO BEDTIME Eszopiclone [Lunesta] 1 mg PO BEDTIME PRN PRN Reason: Sleep Fluticasone Propionate [Fluticasone 50 mcg Nasal [place]] 50 mcg BOTH NARES BID Desloratadine [Clarinex] 5 mg PO DAILY Celecoxib [Celebrex] 200 mg PO DAILY PRN PRN Reason: Pain Pantoprazole Tab [Protonix Tab] 40 mg PO DAILY Cyanocobalamin Tab [Vitamin B12 Tab] 6,000 mg PO DAILY Azelastine Nasal 137 Mcg/[place] [Astelin Nasal [place]] 1 spray BOTH NARES DAILY Discontinued Triamterene/Hydrochlorothiazid [Triamterene-Hctz 37.5-25 mg Cp] 37.5 mg PO DAILY PRN PRN Reason: BP - Follow Up or Referral Follow Up: Saleem Quarles MD [Physician] - 02/19/17 3:30 pm (EKG, BMP and CBC. Arrive at 3:00 pm for lab work ) - Forms/Instructions Instructions: Myocardial Infarction (GEN), Left Heart Catheterization (DC), Heart Healthy Diet (GEN), Coronary Intravascular Stent Placement, Yard Jockey (GEN) Exam - Constitutional Vitals: Period Temp Pulse Resp BP Sys/Pike Pulse Ox Last 24 Hr 98.1 F-98.9 F 78-97 18-20 98-134/58-78 90-100 Exam: 81-year-old white female, no acute distress, alert and oriented Chest clear CV regular rate and rhythm Abdomen soft and nontender Extremities no edema Discharge Results Procedures and tests throughout hospitalization: Pending Orders 02/03/17 04:00 BMP w/ Mg [Basic Metabolic Panel w/Mg] IN AM CBC [Comp Blood Count Auto Diff] IN AM Labs on day of discharge: Labs from last 24 hours 02/02/17 02/02/17 02/02/17 12:52 11:25 10:44 WBC 18.2 H D RBC 4.05 D Hgb 11.8 L D Hct 34.2 L MCV 84.4 L MCH 29 MCHC 34.5 RDW 14.5 Plt Count 362 D MPV 9.6 Neut % (Auto) 80.7 H Lymph % (Auto) 10.5 L [place] % (Auto) 7.8 Eos % (Auto) 0.2 Baso % (Auto) 0.3 Neut # (Auto) 14.7 H Lymph # (Auto) 1.9 [place] # (Auto) 1.4 H Eos # (Auto) 0.0 Baso # (Auto) 0.1 Immature Gran % 0.5 Nucleated RBC % 0.0 Immature Gran # 0.09 Nucleated RBCs # 0.00 Immature Plt Fraction 0.0 Sodium 128 L Potassium 3.9 Chloride 96 L Carbon Dioxide 22 Anion Gap 13.9 BUN 10 Creatinine 1.00 GFR Calculation 56 BUN/Creatinine Ratio 10.00 Glucose 112 H POC Glucose 130 H Calculated Osmolality 256.1 L Calcium 8.6 D Magnesium 1.9 Total Bilirubin AST ALT Alkaline Phosphatase Total Creatine Kinase CK-MB (CK-2) CK and CKMB Interp Troponin I Total Protein Albumin Globulin Albumin/Globulin Ratio Urine Color Urine Appearance Urine pH Ur Specific [place] Urine Protein Urine Glucose (UA) Urine Ketones Urine Blood Urine Nitrate Urine Bilirubin Urine Urobilinogen Urine Leukocytes Urine RBC Urine WBC Ur Squamous Epith Cells Urine Mucus Ur Culture Indicated? 02/02/17 02/02/17 02/02/17 07:38 04:46 04:46 WBC RBC Hgb Hct MCV MCH MCHC RDW Plt Count MPV Neut % (Auto) Lymph % (Auto) [place] % (Auto) Eos % (Auto) Baso % (Auto) Neut # (Auto) Lymph # (Auto) [place] # (Auto) Eos # (Auto) Baso # (Auto) Immature Gran % Nucleated RBC % Immature Gran # Nucleated RBCs # Immature Plt Fraction Sodium 134 L 137 Potassium 3.2 L 2.9 L Chloride 102 107 Carbon Dioxide 20 L 19 L Anion Gap 15.2 H 13.9 BUN 9 9 Creatinine 0.90 0.70 GFR Calculation 64 86 BUN/Creatinine Ratio 10.00 12.00 Glucose 94 87 POC Glucose 88 Calculated Osmolality 266.2 L 270.8 L Calcium 7.1 L 6.4 L D Magnesium Total Bilirubin 1.00 AST 29 ALT 11 L Alkaline Phosphatase 64 Total Creatine Kinase 133 CK-MB (CK-2) 14.2 H D CK and CKMB Interp 10.7 Troponin I 4.140 H D Total Protein 4.0 L Albumin 2.1 L Globulin 1.9 L Albumin/Globulin Ratio 1.1 Urine Color Urine Appearance Urine pH Ur Specific [place] Urine Protein Urine Glucose (UA) Urine Ketones Urine Blood Urine Nitrate Urine Bilirubin Urine Urobilinogen Urine Leukocytes Urine RBC Urine WBC Ur Squamous Epith Cells Urine Mucus Ur Culture Indicated? 02/02/17 02/01/17 02/01/17 04:46 20:00 17:17 WBC 13.4 H RBC 3.28 L D Hgb 9.6 L D Hct 28.1 L MCV 85.7 L MCH 29 MCHC 34.2 RDW 14.6 Plt Count 300 D MPV 9.6 Neut % (Auto) 77.2 H Lymph % (Auto) 13.6 L [place] % (Auto) 8.1 Eos % (Auto) 0.4 Baso % (Auto) 0.3 Neut # (Auto) 10.4 H Lymph # (Auto) 1.8 [place] # (Auto) 1.1 H Eos # (Auto) 0.1 Baso # (Auto) 0.0 Immature Gran % 0.4 Nucleated RBC % 0.0 Immature Gran # 0.05 Nucleated RBCs # 0.00 Immature Plt Fraction 0.0 Sodium Potassium Chloride Carbon Dioxide Anion Gap BUN Creatinine GFR Calculation BUN/Creatinine Ratio Glucose POC Glucose 157 H Calculated Osmolality Calcium Magnesium Total Bilirubin AST ALT Alkaline Phosphatase Total Creatine Kinase CK-MB (CK-2) CK and CKMB Interp Troponin I Total Protein Albumin Globulin Albumin/Globulin Ratio Urine Color Yellow Urine Appearance Clear Urine pH 5.0 Ur Specific [place] > 1.060 H Urine Protein Negative Urine Glucose (UA) Negative Urine Ketones Negative Urine Blood Negative Urine Nitrate Negative Urine Bilirubin Negative Urine Urobilinogen < 2.0 H Urine Leukocytes Negative Urine RBC 4 Urine WBC 1 Ur Squamous Epith Cells Occasional Urine Mucus Occasional Ur Culture Indicated? Not indicated 02/01/17 02/01/17 16:44 16:06 WBC RBC Hgb Hct MCV MCH MCHC RDW Plt Count MPV Neut % (Auto) Lymph % (Auto) [place] % (Auto) Eos % (Auto) Baso % (Auto) Neut # (Auto) Lymph # (Auto) [place] # (Auto) Eos # (Auto) Baso # (Auto) Immature Gran % Nucleated RBC % Immature Gran # Nucleated RBCs # Immature Plt Fraction Sodium Potassium Chloride Carbon Dioxide Anion Gap BUN Creatinine GFR Calculation BUN/Creatinine Ratio Glucose POC Glucose 143 H Calculated Osmolality Calcium Magnesium Total Bilirubin AST ALT Alkaline Phosphatase Total Creatine Kinase 147 D CK-MB (CK-2) 19.9 H D CK and CKMB Interp 13.5 Troponin I 5.930 H Total Protein Albumin Globulin Albumin/Globulin Ratio Urine Color Urine Appearance Urine pH Ur Specific [place] Urine Protein Urine Glucose (UA) Urine Ketones Urine Blood Urine Nitrate Urine Bilirubin Urine Urobilinogen Urine Leukocytes Urine RBC Urine WBC Ur Squamous Epith Cells Urine Mucus Ur Culture Indicated? DS: Provider Date of admission: 02/01/17 04:20 Primary care physician: Daniel Ramirez, Attending physician on admission: Jesu Everett MD Consults: 02/01/17 04:21 Consult to Physician [CONS] Routine Comment: Chest pain; NSTEMI Consulting Provider: Cardiology - [facility] 02/01/17 11:00 Consult to Cardiac Rehabilitation [CONS] Routine Reason for Cardiac Rehabilitation: Risk Factor Modification Other Consult Comment: Evaluate and recommend Discharging clinician: MIKE Jenkins Expected date of discharge: 02/02/17
--- NOTE | 2017-02-02 20:38 | Order Completion Report ---
See report scanned to EMR
[2017-02-02] MEDS ORDERED: EZETIMIBE 10 MG TABLET PO SCH (21:00)
--- NOTE | 2017-02-24 17:16 | Order Completion Report ---
See report scanned to EMR
== END 2017-02-02 14:49 | disposition home or self-care (01) ==
LOC: EDBD → EDUNIT# → N.TELES 00:11 → N.ED 00:11 → SUATTDRO 04:20 → N.TELES 05:33
PROVIDERS: ADMIT Internal Medicine; ATTEND Hospitalist
PROC: CLCCHCL (ICD-10-PCS; 2017-02-01 10:15)

== ENCOUNTER 2020-11-27 03:38 | Inpatient (IN) ==
[2020-11-27] MEDS ORDERED: MORPHINE 2 MG/1 ML SYRINGE IV STA (04:03)
[2020-11-27] MEDS ORDERED: ASPIRIN 325 MG TABLET PO STA (04:03)
[2020-11-27] MEDS ORDERED: NITROGLYCERIN 2% OINT 1 INCH/GM PACK TOP STA (04:03)
[2020-11-27] MEDS ORDERED: ENOXAPARIN 100 MG/ML SYRINGE SUBCUT STA (04:03)
[2020-11-27] MEDS ORDERED: ONDANSETRON 4 MG/2 ML VIAL IV STA (04:03)
[2020-11-27] MEDS ORDERED: ALUM/MAG/SIMETH/LIDO VISC 1:1 30 ML BOTTLE PO STA (04:03)
[2020-11-27 04:15] LABS: Basophils # 0.1 10*3/uL (0.0-0.2); Basophils % 0.4 % (0.0-0.8); Eosinophils # 0.1 10*3/uL (0.0-0.87); Eosinophils % 0.9 % (0.00-10.9); Hematocrit 38.2 VOL% (35.7-47.0); Immature Granulocytes % 0.4 %; Immature Granulocytes Absolute 0.05 #; Lymphocytes # 2.8 10*3/uL (1.4-4.0); Lymphocytes % 23.5 % (21.3-54.2); Mean Corpuscular Volume 87.4 FL (87-102); Mean Platelet Volume 9.5 FL (9.6-12.0); Monocytes % 5.3 % (1.7-12.7); Neutrophils % 69.5 % (38.7-73.9); Platelet Count 424 T/CUMM (130-400); Red Blood Count 4.37 MC/CUMM (3.8-5.5); Red Cell Distribution Width 13.7 % (9.3-17.3); White Blood Count 11.7 T/CUMM (4-12)
[2020-11-27 04:29] LABS: INR 0.9; PT Patient Result 10.6 SECS (10.5-12.0)
[2020-11-27 04:38] LABS: Albumin 4.1 G/DL (3.4-5.0); Bilirubin,Total 0.4 MG/DL (0.20-1.00); Osmolality,Calculated 272.4 MOS/KG (273-304); Potassium 3.5 MMOL/L (3.5-5.1); Total Protein 7.2 G/DL (6.4-8.2)
[2020-11-27] MEDS ORDERED: GLUCAGON 1 MG VIAL IM PRN (05:11)
[2020-11-27] MEDS ORDERED: MORPHINE 2 MG/1 ML SYRINGE IV PRN (05:11)
[2020-11-27] MEDS ORDERED: ONDANSETRON 4 MG/2 ML VIAL IV PRN (05:11)
[2020-11-27] MEDS ORDERED: ACETAMINOPHEN 325 MG TABLET PO PRN (05:11)
[2020-11-27] MEDS ORDERED: DEXTROSE 50% 25 GM/50 ML VIAL IV PRN (05:11)
[2020-11-27] MEDS ORDERED: NON-FORMULARY MEDICATION (Acetaminophen [Tylenol] 325 mg Capsule) PO PRN (05:18)
[2020-11-27] MEDS ORDERED: CELECOXIB 200 MG CAPSULE PO PRN (05:18)
[2020-11-27 07:53] LABS: Risk Ratio 3.91; VLDL Cholesterol 25.6 MG/DL
[2020-11-27] MEDS: INSULIN REGULAR 100 UNIT/ML SUBCUT SCH ×4 (08:28→22:47)
[2020-11-27] MEDS ORDERED: METOPROLOL SUCCINATE XL 50 MG TABLET PO SCH (09:00)
[2020-11-27] MEDS ORDERED: SELENIUM 200 MCG TABLET PO SCH (09:00)
[2020-11-27] MEDS ORDERED: ASPIRIN 325 MG TABLET PO SCH (09:00)
[2020-11-27] MEDS: LOSARTAN 25 MG TABLET PO SCH (09:43)
[2020-11-27] MEDS: ROSUVASTATIN 20 MG TABLET PO SCH (09:43)
[2020-11-27] MEDS: PANTOPRAZOLE 40 MG TABLET PO SCH (09:44)
[2020-11-27] MEDS: FUROSEMIDE 20 MG TABLET PO SCH (09:44)
[2020-11-27] MEDS ORDERED: POTASSIUM CHLORIDE RIDER 10 MEQ/100 ML PREMIX IV PRN (10:09)
[2020-11-27] MEDS ORDERED: MAGNESIUM SULF RIDER 2 GM/50 ML PREMIX IV PRN (10:09)
[2020-11-27] MEDS: MULTIVITAMIN (OCUVITE) TABLET PO SCH ×2 (10:27→22:48)
[2020-11-27] MEDS: CALCIUM (CARBONATE) 500 MG TABLET PO SCH (10:28)
[2020-11-27] MEDS ORDERED: diphenhydrAMINE CAP 50 MG CAPSULE PO ONE (10:30)
[2020-11-27] MEDS ORDERED: DIAZEPAM 5 MG TABLET PO ONE (10:30)
[2020-11-27] MEDS ORDERED: diphenhydrAMINE CAP 25 MG CAPSULE ONE (10:37)
[2020-11-27] MEDS: SODIUM CHLORIDE 0.9% 1,000 ML IV SCH ×2 (10:46→18:30)
[2020-11-27] MEDS ORDERED: MIDAZOLAM 2 MG/2 ML VIAL ONE (10:53)
[2020-11-27] MEDS ORDERED: ONDANSETRON 4 MG/2 ML VIAL ONE (10:54)
[2020-11-27] MEDS ORDERED: fentaNYL 100 MCG/2 ML VIAL ONE (10:54)
[2020-11-27] MEDS ORDERED: HEPARIN 5,000 UNIT/1 ML VIAL ONE (11:20)
[2020-11-27] MEDS ORDERED: TIROFIBAN 5,000 MCG/100 ML PREMIX IV ONE (11:21)
[2020-11-27] MEDS ORDERED: TIROFIBAN 5,000 MCG/100 ML PREMIX IV SCH (11:29)
[2020-11-27] MEDS ORDERED: METOPROLOL TARTRATE 5 MG/5 ML VIAL IV ONE ×3 (11:54→12:14)
[2020-11-27] MEDS ORDERED: CLOPIDOGREL 300 MG TABLET ONE (11:57)
[2020-11-27] MEDS ORDERED: ZALEPLON 5 MG CAPSULE PO PRN (12:39)
[2020-11-27] MEDS: IPRATROPIUM 0.06% NASAL SPRAY 15 ML BOTTLE BOTH NARES SCH ×4 (13:02→22:47)
[2020-11-27] MEDS: AZELASTINE NASAL 137 MCG/SPRAY 30 ML BOTTLE BOTH NARES SCH (13:02)
[2020-11-27] MEDS: CYANOCOBALAMIN 500 MCG TABLET PO SCH (13:21)
[2020-11-27] MEDS: DICLOFENAC 1% GEL 100 GM TUBE TOP SCH ×4 (13:21→22:47)
[2020-11-27] MEDS: carvediloL 12.5 MG TABLET PO SCH ×2 (13:27→18:05)
[2020-11-27 18:27] VITALS: BP 113/61
[2020-11-27] MEDS ORDERED: EZETIMIBE 10 MG TABLET PO SCH (21:00)
[2020-11-27] MEDS: FLUTICASONE 50 MCG NASAL SPRAY 16 GM BOTTLE BOTH NARES SCH (22:46)
[2020-11-28] MEDS: carvediloL 12.5 MG TABLET PO SCH ×3 (02:00→15:46)
[2020-11-28 05:29] LABS: Basophils # 0.1 10*3/uL (0.0-0.2); Basophils % 0.6 % (0.0-0.8); Eosinophils # 0.1 10*3/uL (0.0-0.87); Eosinophils % 1.3 % (0.00-10.9); Hematocrit 35.1 VOL% (35.7-47.0); Hemoglobin 11.6 GM/DL (12.0-16.0); Immature Granulocytes % 0.4 %; Immature Granulocytes Absolute 0.04 #; Lymphocytes # 2.6 10*3/uL (1.4-4.0); Lymphocytes % 25.2 % (21.3-54.2); Mean Corpuscular Volume 89.1 FL (87-102); Mean Platelet Volume 9.7 FL (9.6-12.0); Monocytes % 8.9 % (1.7-12.7); Neutrophils % 63.6 % (38.7-73.9); Platelet Count 352 T/CUMM (130-400); Red Blood Count 3.94 MC/CUMM (3.8-5.5); Red Cell Distribution Width 13.9 % (9.3-17.3); White Blood Count 10.3 T/CUMM (4-12)
[2020-11-28 05:50] LABS: Calcium 8.6 MG/DL (8.5-10.1); Osmolality,Calculated 273.8 MOS/KG (273-304); Potassium 3.2 MMOL/L (3.5-5.1)
[2020-11-28] MEDS ORDERED: CLOPIDOGREL 75 MG TABLET PO SCH (09:00)
[2020-11-28] MEDS ORDERED: ASPIRIN EC 81 MG TABLET PO SCH (09:00)
[2020-11-28] MEDS ORDERED: SELENIUM 200 MCG TABLET PO SCH (09:00)
[2020-11-28] MEDS ORDERED: POTASSIUM CHLORIDE 20 MEQ TABLET PO ONE (09:14)
[2020-11-28] MEDS: INSULIN REGULAR 100 UNIT/ML SUBCUT SCH ×3 (09:43→18:13)
[2020-11-28] MEDS: LOSARTAN 25 MG TABLET PO SCH (09:44)
[2020-11-28] MEDS: FUROSEMIDE 20 MG TABLET PO SCH (09:45)
[2020-11-28] MEDS: ROSUVASTATIN 20 MG TABLET PO SCH (09:45)
[2020-11-28] MEDS: CYANOCOBALAMIN 500 MCG TABLET PO SCH (09:48)
[2020-11-28] MEDS: CALCIUM (CARBONATE) 500 MG TABLET PO SCH (09:53)
[2020-11-28] MEDS: PANTOPRAZOLE 40 MG TABLET PO SCH (09:53)
[2020-11-28] MEDS: AZELASTINE NASAL 137 MCG/SPRAY 30 ML BOTTLE BOTH NARES SCH (09:57)
[2020-11-28] MEDS: IPRATROPIUM 0.06% NASAL SPRAY 15 ML BOTTLE BOTH NARES SCH ×3 (09:57→18:13)
[2020-11-28] MEDS: FLUTICASONE 50 MCG NASAL SPRAY 16 GM BOTTLE BOTH NARES SCH (09:57)
[2020-11-28] MEDS: MULTIVITAMIN (OCUVITE) TABLET PO SCH (09:58)
[2020-11-28] MEDS: DICLOFENAC 1% GEL 100 GM TUBE TOP SCH ×3 (09:58→18:13)
== END 2020-11-28 18:07 | disposition home or self-care (01) | DRG 247 ==
LOC: EDUNIT# → EDBD → N.EDINP 03:38 → N.ED 03:38 → N.EDINP 10:45 → N.TELEN 12:35
PROVIDERS: ADMIT Internal Medicine Cardiovascular Disease; ATTEND Internal Medicine Cardiovascular Disease
PROC: CLCCHCL (ICD-10-PCS; 2020-11-27 10:45)